=== PATIENT | female | born 1955 | race Caucasian/White ===

== ENCOUNTER 2022-02-12 11:36 | Emergency (ER) | payer SELFPAY ==
[~2022-02-12] VITALS: Ht 147.3 cm; Wt 75.7 kg
[2022-02-12 11:41] VITALS: BP 179/79
--- NOTE | 2022-02-12 12:29 | NUR ---
MR COTTRELL AT BEDSIDE FOR EVALUATION
[2022-02-12] MEDS ORDERED: ONDANSETRON 4 MG/2 ML VIAL IVP ONE (12:35)
[2022-02-12] MEDS ORDERED: diphenhydrAMINE 50 MG/ML VIAL IVP ONE (12:35)
[2022-02-12] MEDS ORDERED: NACL 0.9% 1,000 ML IV ONE (12:35)
[2022-02-12 12:58] LABS: BASOPHILS % (AUTO) 0.4 % (0.0-2.0); EOSINOPHILS # (AUTO) 0.2 K/uL (0-0.4); HEMATOCRIT 38.6 % (36-48); HEMOGLOBIN 12.7 g/dL (12.0-16.0); LYMPHOCYTES # (AUTO) 2.3 K/uL (2.5-16.5); LYMPHOCYTES % (AUTO) 28.5 % (20.5-51.1); MEAN CORPUSCULAR HEMOGLOBIN 30 pg (27-31); MEAN CORPUSCULAR HGB CONC 33 g/dL (33-37); MEAN CORPUSCULAR VOLUME 90.4 fL (80-94); MONOCYTES # (AUTO) 0.8 K/uL (0.8-1.0); MONOCYTES % (AUTO) 9.3 % (1.7-9.3); NEUTROPHILS # (AUTO) 4.9 K/uL (1.8-7.7); NEUTROPHILS % (AUTO) 59.8 % (42.2-75.2); PLATELET COUNT (AUTO) 170 K/uL (140-450); RED BLOOD CELL COUNT(AUTO) 4.28 MIL/uL (4.20-5.40); RED CELL DISTRIBUTION WIDTH 13.7 % (11.6-13.7); WHITE BLOOD COUNT (AUTO) 8.1 K/uL (4.8-10.8)
--- NOTE | 2022-02-12 13:15 | NUR ---
66YO FEMALE PT C/O SUDDEN 02/25 HEADACHE XYESTERDAY. DENIES TAKING MEDICATION FOR RELIEF, N/V/D, CHEST PAIN , CHANGE IN VISION OR SOB. AMBULATORY W/ STEADY GAIT .NOTES HIGH BS READING W/ MILD RELIEF AFTER TAKING RX. PT AAOX4, RESPIRATIONS EVEN AND UNLABORED. HOB POSITIONED PER COMFORT, BED AT LOWEST POSITION. ROMANSH SPEAKING. HX:DIABETES, HTN NKA
[2022-02-12 14:05] LABS: ALBUMIN 3.1 g/dL (3.4-5.0); ANION GAP 11.4 (8-16); ASPARTATE AMINOTRANSFERASE 234 U/L (15-37); CARBON DIOXIDE 25.7 mmol/L (21-32); CHLORIDE 103 mmol/L (98-107); CREATININE 0.7 mg/dL (0.6-1.3); GFR ARICAN-AMERICAN 108 mL/min (>90); GLUCOSE 240 mg/dL (74-106); POTASSIUM 4.1 mmol/L (3.5-5.1); SODIUM SERUM 136 mmol/L (136-145); TOTAL BILIRUBIN 0.6 mg/dL (0.0-1.0); UREA NITROGEN, BLOOD 13 mg/dL (7-18)
[2022-02-12] MEDS ORDERED: ACET-10509 PO (14:24)
[2022-02-12] MEDS ORDERED: ONDA-188 PO (14:24)
--- NOTE | 2022-02-12 14:50 | NUR ---
IV removed, catheter intact and site benign. Applied folded 4x4 gauze and tape to stop bleeding.
[2022-02-12 14:54] VITALS: BP 145/71
--- NOTE | 2022-02-12 14:54 | NUR ---
Patient discharged with v/s stable. Written and verbal after care instructions FOR MIGRAINE HEADACHE given and explained. Patient alert, oriented and verbalized understanding of instructions. Ambulatory with steady gait. All questions addressed prior to discharge. ID band removed. Patient advised to follow up with PMD. Rx of TYLENOL XTRA STRENGTH AND ZOFRAN given. Opportunity to ask questions provided and answered.
--- NOTE | 2022-02-12 15:03 | NUR ---
The patient's care was reviewed and supervised by Reshma Pichardo RN.
== END 2022-02-12 14:54 | disposition home or self-care (01) ==
LOC: MED 11:36
DX: R51.9 Headache, unspecified (principal); R79.89 Other specified abnormal findings of blood chemistry; E11.65 Type 2 diabetes mellitus with hyperglycemia; Z79.899 Other long term (current) drug therapy
CPT/HCPCS: 36415; 70450; 80053; 84484; 85025; 96361; 96374; 96375; 99284; J1200; J2405; J7030